=== PATIENT | female | born 1985 | race Caucasian/White ===

== ENCOUNTER 2019-03-20 07:57 | Inpatient (IN) | payer BC, OTHER ==
[2019-03-20] MEDS ORDERED: Buffered Lidocaine 1% SYRIN* 1 ML/SYRINGE INTRADERM ONE (08:17)
[2019-03-20] MEDS ORDERED: Lactated Ringers 1000 ML Bag* 1,000 ML IV ONE ×2 (08:17→20:26)
[2019-03-20] MEDS ORDERED: Lactated Ringers 1000 ML Bag* 1,000 ML IV SCH ×3 (09:00→21:00)
[2019-03-20] MEDS: Oxytocin in LR* 20 UNITS/1,000 ML BAG IVPB SCH (09:03)
[2019-03-20 09:14] LABS: ABS Basophils 0.1 10^3/ul (0-0.2); ABS Eosinophils 0.1 10^3/ul (0-0.6); ABS Monocytes 0.7 10^3/ul (0-0.8); Eosinophil % 1.2 %; Hematocrit 32 % (35-47); Hemoglobin 10.8 g/dL (12.0-16.0); Lymphocyte % 20.6 %; Mean Corpuscular HGB Conc 33 g/dL (31-36); Mean Corpuscular Hemoglobin 26 pg (27-31); Mean Corpuscular Volume 78 fL (80-97); Mean Platelet Volume 8.9 fL (7.4-10.4); Nucleated Red Blood Cells % 0.1; Platelet Count 158 10^3/uL (150-450); Red Blood Count 4.15 10^6 /uL (3.70-4.87); Red Cell Distribution Width 15 % (10-15); White Blood Count 9.9 10^3/uL (3.5-10.8)
--- NOTE | 2019-03-20 13:32 | PN ---
Progress Note - Progress Note Date of Service: 03/20/19 SOAP: Subjective: Pt comfortable, reports she can feel ctx but no pain. Had lunch, at bedside. Objective: Called by RN to review FHR tracing. FHR had been Category I until 1245 when pt got up to restroom, after which time, several late decelerations were noted. IV fluid bolus administered and pt lay on left side, after which time decelerations ceased. FHR currently baseline 135, moderate variability, + accels , no decels. Pitocin currently at 14. UCs Q 2-3 minutes, mild Cervical exam deferred Assessment: FHR was Category II, currently Category I again. Pt not yet in active labor. Membranes intact. Plan: Monitor FHR at current Pitocin rate for 20-30 minutes, if continues to be Category I can continue to increase Pitocin per protocol. Continuous EFM.
--- NOTE | 2019-03-20 15:31 | HP ---
General Information - Reason for Visit induction at 39 5/7 - General Information Maternal Age: 33 Grav: 2 Para: 1 SAB: 0 IEA: 0 Estimated Due Date: 03/22/19 Determined By: Early Ultrasound Gestational Age in Weeks/Days: 39 5/7 weeks Maternal Blood Type and Rh: O Negative - Results this Serology/RPR Result: Non-Reactive Rubella Result: Immune HBsAg Result: Negative HIV Result: Negative GBS Culture Result: Negative Past Medical History Delivery History: See Records Pertinent Past Medical History: See Records Pertinent Past Surgical History: See Records Pertinent Family History: See Records - Antepartal Records Antepartal Records: Reviewed, Uncomplicated Review of Systems Constitutional: Comfortable CV Complaint: No Respiratory: Shortness of Breath: No Gastrointestinal: No Nausea/Vomiting Genitourinary: No Dysuria, No Bleeding, No Leaking Fluid Musculoskeletal: No Complaint Neurological: No Headache Movement: Normal Exam Allergies/Adverse Reactions: Allergies No Known Allergies Allergy (Verified 03/20/19 08:17) T: 98.4 BP:116/80 P: 91 Lab Values - Entire Visit: Laboratory Tests 03/20/19 03/20/19 08:59 08:59 WBC 9.9 RBC 4.15 Hgb 10.8 L Hct 32 L MCV 78 L MCH 26 L MCHC 33 RDW 15 Plt Count 158 MPV 8.9 Neut % (Auto) 70.8 Lymph % (Auto) 20.6 Butts % (Auto) 6.8 Eos % (Auto) 1.2 Baso % (Auto) 0.6 Absolute Neuts (auto) 7.0 Absolute Lymphs (auto) 2.0 Absolute Monos (auto) 0.7 Absolute Eos (auto) 0.1 Absolute Basos (auto) 0.1 Absolute Nucleated RBC 0.0 Nucleated RBC % 0.1 Blood Type O Negative Antibody Screen Negative - Measurements Height: 5 ft 7 in Weight: 209 lb Weight in lbs: [phone] Body Mass Index (BMI): 32.7 Pre- Weight: 188 lb Weight Gained This : 21 lbs and 0 ozs - Exam Breast: Breast Exam Deferred CVA: No CVA Tenderness Extremities: No Edema Heart: Normal Rhythm/Heart Sounds HEENT: No Significant Findings Lungs: Clear Bilaterally Rectal: Rectal Exam Deferred Reflexes: DTR 2+ Thyroid: No Thyromegaly - Abdominal Exam Abdomen Exam: Non-Tender - Ultrasound/Biophysical Profile Ultrasound Status: Not Done Targeted Exam Findings Cervical Exam: 2cm Effacement: 70% Station: -3 Presenting Part: Vertex Membrane Status: Intact EFM Findings - External Monitor Findings Baseline Heart Rate: 140 External Monitor Findings: Accelerations Present, No Pattern of Variable or Late Decelerations, Variability Moderate Contractions: None Assessment/Plan - Assessment Pt 33 yo at 39 5/7 weeks. Pt presents for labor induction.. GBS negative. - Plan Plan: Induction, Admit - Anticipate Vaginal Delivery
[2019-03-20] MEDS ORDERED: OBEPIDURAL* 250 ML EPIDURAL ONE (19:52)
[2019-03-20] MEDS ORDERED: Famotidine TAB* 20 MG PO PRN (20:26)
[2019-03-20] MEDS ORDERED: Sodium Citrate/Citric Acid* 15 ML UDC PO PRN (20:26)
[2019-03-20] MEDS ORDERED: Lactated Ringers 1000 ML Bag* 500 ML IV PRN ×2 (20:26)
[2019-03-20] MEDS ORDERED: Phenylephrine 40 MCG/ML SYRINGE IV PUSH PRN ×2 (20:26)
[2019-03-20] MEDS ORDERED: OBEPIDURAL* 250 ML EPIDURAL SCH (21:00)
[2019-03-21] MEDS: Oxytocin in LR* 20 UNITS/1,000 ML BAG IVPB SCH (03:47)
[2019-03-21] MEDS ORDERED: Dibucaine 1% 28.35 GM TUBE PR PRN (03:56)
[2019-03-21] MEDS ORDERED: Misoprostol TAB* 200 MCG PR ONE (03:56)
[2019-03-21] MEDS ORDERED: Witch Hazel PAD* JAR TOPICAL PRN (03:56)
[2019-03-21] MEDS ORDERED: Glycerin ADULT SUPP PR PRN (03:56)
[2019-03-21] MEDS ORDERED: Acetaminophen TAB* 325 MG PO PRN (03:56)
[2019-03-21] MEDS ORDERED: RHO D Immune Globulin (HUMAN)* 300 MCG = 1,500 I.U. INJ IM ONE (03:56)
[2019-03-21] MEDS ORDERED: Oxytocin in LR* 20 UNITS/1,000 ML BAG IVPB SCH (04:00)
[2019-03-21] MEDS ORDERED: Lactated Ringers 1000 ML Bag* 1,000 ML IV SCH (04:00)
--- NOTE | 2019-03-21 04:02 | PROCNOTE ---
[facility] OB: Delivery Note - Delivery A Date of : 03/21/19 Time of : 03:36 Sex: Female Weight at : 9 lb 6 oz Gestational Age in Weeks and Days at Delivery: 39 Weeks and 6 Days Delivery Method: Spontaneous Vaginal Labor: Spontaneous Did Patient attempt ?: N/A, No Previous Amniotic Fluid: Clear Estimated Blood Loss: 300 Anesthesia/Analgesia: CEI for Labor Delivered By: Neva Lyon - Nursery Level of Nursery: Regular/Bedside - Perineum Perineal Injury: None/Intact Perineal Repair: None - no meconium no nuchal cord/ placenta spontaneous /3VC/ intact - Events Delivery Events of Note: Pitocin During Labor, Pitocin Only After Delivery
[2019-03-21] MEDS: Docusate CAP* 100 MG PO SCH ×3 (07:55→20:34)
[2019-03-21] MEDS ORDERED: Simethicone TAB* 80 MG TAB.CHEW PO SCH (08:30)
[2019-03-21] MEDS: Ibuprofen TAB* 600 MG PO PRN ×2 (11:03→16:54)
[2019-03-22] MEDS: Ibuprofen TAB* 600 MG PO PRN ×2 (00:36→07:54)
[2019-03-22 05:55] LABS: ABS Basophils 0.1 10^3/ul (0-0.2); ABS Eosinophils 0.3 10^3/ul (0-0.6); ABS Lymphocytes 3.1 10^3/ul (1.0-4.8); ABS Monocytes 0.9 10^3/ul (0-0.8); ABS Neutrophils 8.7 10^3/ul (1.5-7.7); Hematocrit 27 % (35-47); Hemoglobin 9.3 g/dL (12.0-16.0); Lymphocyte % 23.8 %; Mean Corpuscular HGB Conc 34 g/dL (31-36); Mean Corpuscular Hemoglobin 26 pg (27-31); Mean Corpuscular Volume 77 fL (80-97); Mean Platelet Volume 8.8 fL (7.4-10.4); Platelet Count 141 10^3/uL (150-450); Red Blood Count 3.55 10^6 /uL (3.70-4.87); Red Cell Distribution Width 15 % (10-15)
[2019-03-22] MEDS: Docusate CAP* 100 MG PO SCH (07:54)
[2019-03-22 07:58] VITALS: BP 121/76
[2019-03-22] MEDS ORDERED: Ferrous Gluconate TAB* 324 MG TAB PO SCH (09:00)
== END 2019-03-22 11:39 | disposition home or self-care (01) | DRG 560 ==
LOC: MCHOBOUT 07:57 → MCHOB 08:19
PROVIDERS: ADMIT Obstetrics & Gynecology; ATTEND Obstetrics & Gynecology
PROC: 10E0XZZ Delivery of Products of Conception, External Approach (ICD-10-PCS; principal; 2019-03-21)
PROC: 3E033VJ Introduction of Other Hormone into Peripheral Vein, Percutaneous Approach (ICD-10-PCS; 2019-03-21)
PROC: 4A1HXCZ Monitoring of Products of Conception, Cardiac Rate, External Approach (ICD-10-PCS; 2019-03-21)
DX: O76 Abnormality in fetal heart rate and rhythm complicating labor and delivery (principal); Z37.0 Single live birth; O90.81 Anemia of the puerperium; Z3A.39 39 weeks gestation of pregnancy; Z67.41 Type O blood, Rh negative
CPT/HCPCS: 36415; 85025; 86850; 86900; 86901; A9270-GY